=== PATIENT | female | born 1945 | race Caucasian/White ===

== ENCOUNTER 2020-03-31 20:00 | Observation (INO) | payer MEDICARE, MEDICAID ==
[~2020-03-31] VITALS: Ht 165.1 cm; Wt 42.9 kg
[2020-03-31] MEDS ORDERED: SODIUM CHLORIDE FLUSH 10ML SYR IVF ONE (22:30)
--- NOTE | 2020-03-31 22:38 | NUR ---
PT GONE TO CT.
[2020-03-31] MEDS ORDERED: PROP10TA16 PO (22:40)
[2020-03-31] MEDS ORDERED: ZONI25CA16 PO (22:40)
--- NOTE | 2020-03-31 23:03 | NUR ---
REPORT TO SONY GAYLE.
[2020-03-31 23:10] LABS: MEAN CORPUSCULAR HEMOGLOBIN 37.1 pg (27.0-34.8); MEAN CORPUSCULAR VOLUME 112.6 fL (80-100); MEAN PLATELET VOLUME 7.2 fL (7.4-10.4); PLATELET COUNT 290 x10^3/uL (130-400); RED BLOOD COUNT 3.32 x10^6/uL (3.82-5.3); RED CELL DISTRIBUTION WIDTH 13.6 % (9.6-15.2)
[2020-03-31 23:18] LABS: ALBUMIN 2.9 g/dL (3.4-5.0); ANION GAP 6 mmol/L (5-15); CALCIUM 8.1 mg/dL (8.5-10.1); CHLORIDE 111 mmol/L (98-107)
[2020-03-31 23:20] LABS: MICROSCOPIC NOT IND
[2020-03-31 23:23] LABS: ALANINE AMINOTRANSFERASE 16 U/L (12-78); ALKALINE PHOSPHATASE 74 U/L (45-117); BILIRUBIN,TOTAL 0.3 mg/dL (0.2-1.0); CREATININE 1.13 mg/dL (0.55-1.02); TOTAL PROTEIN 6.4 g/dL (6.4-8.2); TROPONIN I < 0.015 ng/mL (0.000-0.045)
[2020-03-31 23:31] LABS: BASOPHILS # (AUTO) 0.06 x10^3/uL (0-0.1); BASOPHILS % (AUTO) 1 % (0-1); EOSINOPHILS # (AUTO) 0.11 x10^3/uL (0-0.4); EOSINOPHILS % (AUTO) 1 % (1-7); LYMPHOCYTES # (AUTO) 1.19 x10^3/uL (1-3.4); LYMPHOCYTES % (AUTO) 16 % (22-44); MD SCAN; MONOCYTES # (AUTO) 0.59 x10^3/uL (0.2-0.8); MONOCYTES % (AUTO) 8 % (2-9); NEUTROPHILS # (AUTO) 5.61 x10^3/uL (1.8-6.8); NEUTROPHILS % (AUTO) 74 % (42-75)
--- NOTE | 2020-04-01 00:34 | NUR ---
GAVE REPORT TO Suzanna GAYLE
[2020-04-01 01:00] VITALS: BP 156/75
[2020-04-01] MEDS ORDERED: ONDANSETRON 2MG/ML, 2ML IVPush PRN (01:30)
[2020-04-01] MEDS ORDERED: OXYcodone IR 5MG TABLET PO PRN (01:30)
[2020-04-01] MEDS ORDERED: TEMAZEPAM 15 MG CAPSULE PO PRN (01:30)
[2020-04-01] MEDS ORDERED: hydrALAzine 20 MG/ML, 1ML IVPush PRN (01:30)
[2020-04-01] MEDS ORDERED: POLYETHYLENE GLYCOL 17 GM PACKET PO PRN (01:30)
[2020-04-01] MEDS ORDERED: LORazepam 2 MG/ML, 1ML IVPush PRN ×2 (01:30→02:30)
[2020-04-01] MEDS ORDERED: BISACODYL 10 MG SUPP PR PRN (01:30)
[2020-04-01] MEDS ORDERED: MELATONIN 5 MG TABLET PO PRN (01:30)
[2020-04-01] MEDS ORDERED: DOCUSATE 100 MG CAPSULE PO PRN (01:30)
[2020-04-01 05:15] LABS: FREE T4 (FREE THYROXINE) 0.96 ng/dL (0.76-1.46)
[2020-04-01 07:21] VITALS: BP 153/77
[2020-04-01] MEDS ORDERED: FAMOTIDINE 20 MG TABLET PO SCH (09:00)
[2020-04-01] MEDS: ACETAMINOPHEN 325 MG TABLET PO PRN (09:24)
[2020-04-01] MEDS ORDERED: AMLO10TA8 PO (11:06)
[2020-04-01] MEDS ORDERED: MULT-252 PO (11:06)
[2020-04-01] MEDS ORDERED: BUTA-177 PO (11:06)
[2020-04-01] MEDS ORDERED: POLY17PO29 PO (11:06)
[2020-04-01] MEDS ORDERED: LEVO50TA5 PO (11:06)
[2020-04-01] MEDS ORDERED: MIRT15TA94 PO (11:06)
[2020-04-01] MEDS ORDERED: LOVA40TA2 PO (11:06)
[2020-04-01] MEDS ORDERED: OMEG-13 PO (11:06)
[2020-04-01] MEDS ORDERED: CHOL10003 PO (11:06)
[2020-04-01] MEDS ORDERED: CALC-112 PO (11:06)
[2020-04-01] MEDS ORDERED: GALC120S SC (11:06)
[2020-04-01] MEDS ORDERED: CHLO25TA PO (11:06)
[2020-04-01] MEDS ORDERED: CYAN-27 PO (11:06)
[2020-04-01] MEDS ORDERED: PROP10TA16 PO (11:06)
[2020-04-01] MEDS ORDERED: ZONI100C29 PO (11:06)
[2020-04-01] MEDS ORDERED: PRAM0.255 PO (11:06)
[2020-04-01 12:12] VITALS: BP 149/60
[2020-04-01 15:34] VITALS: BP 155/63
[2020-04-01] MEDS: CHLORTHALIDONE 25 MG TABLET PO SCH (15:45)
[2020-04-01] MEDS: AMLODIPINE 10 MG TAB PO SCH (15:45)
[2020-04-01] MEDS: LEVOTHYROXINE 50 MCG TABLET PO SCH (15:45)
[2020-04-01] MEDS ORDERED: PROPRANOLOL 10 MG TABLET PO SCH (16:00)
[2020-04-01] MEDS: NICOTINE 21 MG/24 HR PATCH.TD24 TD SCH (18:43)
[2020-04-01 18:47] VITALS: BP 158/64
[2020-04-01] MEDS ORDERED: PRAMIPEXOLE 0.5MG TABLET ONE (20:27)
[2020-04-01] MEDS: ZONISAMIDE 50 MG CAPSULE PO SCH (20:30)
[2020-04-01] MEDS ORDERED: PRAMIPEXOLE 0.25MG TABLET PO SCH (21:00)
[2020-04-01] MEDS ORDERED: LOVASTATIN 40 MG TABLET PO SCH (21:00)
[2020-04-01] MEDS ORDERED: MIRTAZAPINE 15 MG TAB.RAPDIS PO SCH (21:00)
[2020-04-02 02:11] VITALS: BP 159/73
[2020-04-02 05:46] LABS: MEAN CORPUSCULAR HEMOGLOBIN 37.5 pg (27.0-34.8); MEAN CORPUSCULAR HGB CONC 33.2 g/dL (32.4-35.8); MEAN CORPUSCULAR VOLUME 112.9 fL (80-100); MEAN PLATELET VOLUME 7.4 fL (7.4-10.4); PLATELET COUNT 286 x10^3/uL (130-400); RED BLOOD COUNT 3.72 x10^6/uL (3.82-5.3); RED CELL DISTRIBUTION WIDTH 13.9 % (9.6-15.2)
[2020-04-02 05:51] LABS: ANION GAP 8 mmol/L (5-15); CALCIUM 9.3 mg/dL (8.5-10.1); CHLORIDE 109 mmol/L (98-107); CREATININE 0.96 mg/dL (0.55-1.02)
[2020-04-02 06:16] LABS: ANISOCYTOSIS 1+; BASOPHILS # (AUTO) 0.05 x10^3/uL (0-0.1); BASOPHILS % (AUTO) 1 % (0-1); EOSINOPHILS # (AUTO) 0.18 x10^3/uL (0-0.4); EOSINOPHILS % (AUTO) 3 % (1-7); LYMPHOCYTES # (AUTO) 1.76 x10^3/uL (1-3.4); LYMPHOCYTES % (AUTO) 24 % (22-44); MD MORPH REVIEW ONLY; MONOCYTES # (AUTO) 0.88 x10^3/uL (0.2-0.8); MONOCYTES % (AUTO) 12 % (2-9); NEUTROPHILS # (AUTO) 4.58 x10^3/uL (1.8-6.8); NEUTROPHILS % (AUTO) 61 % (42-75)
[2020-04-02 06:17] LABS: <PLATELET ESTIMATE> ADEQUATE; <PLT MORPHOLOGY> NORMAL PLT MORPH
[2020-04-02 08:52] VITALS: BP 131/77
[2020-04-02] MEDS ORDERED: NICOTINE 21 MG/24 HR PATCH.TD24 TD SCH (09:00)
[2020-04-02] MEDS: NICOTINE 21 MG/24 HR PATCH.TD24 TD SCH (09:03)
[2020-04-02] MEDS: ZONISAMIDE 50 MG CAPSULE PO SCH (09:04)
[2020-04-02] MEDS: CHLORTHALIDONE 25 MG TABLET PO SCH (09:04)
[2020-04-02] MEDS: LEVOTHYROXINE 50 MCG TABLET PO SCH (09:05)
[2020-04-02] MEDS: AMLODIPINE 10 MG TAB PO SCH (09:05)
[2020-04-02] MEDS: ACETAMINOPHEN 325 MG TABLET PO PRN (09:51)
== END 2020-04-02 12:15 | disposition home or self-care (01) ==
LOC: ED 23:20 → EDIP 04-01 00:21 → INTOOBSV 04-01 00:21 → 4WST 04-01 01:07 → DCLOUNGE 04-02 12:08
PROVIDERS: ADMIT Internal Medicine; ATTEND Family Medicine
DX: G93.41 Metabolic encephalopathy (principal); G40.409 Other generalized epilepsy and epileptic syndromes, not intractable, without status epilepticus; E44.1 Mild protein-calorie malnutrition; R64 Cachexia; E03.9 Hypothyroidism, unspecified; I10 Essential (primary) hypertension; D75.89 Other specified diseases of blood and blood-forming organs; E78.5 Hyperlipidemia, unspecified; G31.9 Degenerative disease of nervous system, unspecified; F02.80 Dementia in other diseases classified elsewhere, unspecified severity, without behavioral disturbance, psychotic disturbance, mood disturbance, and anxiety; F17.210 Nicotine dependence, cigarettes, uncomplicated; F39 Unspecified mood [affective] disorder; G30.1 Alzheimer's disease with late onset; R90.82 White matter disease, unspecified; G43.909 Migraine, unspecified, not intractable, without status migrainosus; Z68.1 Body mass index [BMI] 19.9 or less, adult; Z79.899 Other long term (current) drug therapy
CPT/HCPCS: 36415; 70450; 70544; 70547; 70551; 72125; 80048; 80053; 80203; 80307; 81003; 82607; 83735; 84100; 84439; 84443; 84484; 85025; 86592; 93005; 97161; 97166; 99285; G0378; Q0177